=== PATIENT | female | born 1970 | race Caucasian/White ===

== ENCOUNTER → 2016-12-05 | Outpatient (CLI) | payer MEDICARE, BC ==
[~2016-12-05] MED LIST: ACETAMINOPHEN PO; BISACODYL10 MG/SUPP PR; CITRACAL PLUS T1 TAB PO; CLARITIN10 MG PO
== END | disposition home or self-care (01) ==
LOC: CSSDAY 09:57
DX: M81.0 Age-related osteoporosis without current pathological fracture (principal)
CPT/HCPCS: 96372; J0897